=== PATIENT | male | born 1955 | race Caucasian/White ===

== ENCOUNTER 2020-08-23 12:24 | Outpatient (REF) | payer BC, SELFPAY | END 2020-08-23 12:25 | disposition home or self-care (01) | LOC: HO.LAB 12:24 | PROVIDERS: PCP Nurse Practitioner Family; Visit Provider Internal Medicine | DX: Z20.822 Contact with and (suspected) exposure to COVID-19 (principal) | CPT/HCPCS: 36415; C9803; U0003 ==

== ENCOUNTER 2020-10-23 07:27 | Outpatient (REF) | payer BC, SELFPAY ==
[2020-10-23 12:39] LABS: Alanine Aminotransferase 24 U/L (0-40); Albumin Level 4.3 g/dL (3.5-5.0); Alkaline Phosphatase 61 U/L (39-117); Anion Gap 18 (12-20); Aspartate Amino Transferase 35 U/L (5-37); Bilirubin Total 2.9 mg/dL (0.0-1.0); Blood Urea Nitrogen 11 mg/dL (9-16); Carbon Dioxide 25 mmol/L (22-29); Chloride 105 mmol/L (96-108); Cholesterol 131 mg/dL; Estimated Glomerular Filt Rate > 60; Glucose Fasting 98 mg/dL (60-99); HDL Cholesterol 33 mg/dL; LDL Cholesterol Calculated 81 mg/dl; Potassium 4.5 mmol/L (3.3-5.1); Sodium 143 mmol/L (135-145); Total Protein 7.4 g/dL (6.5-8.0); Triglycerides 86 mg/dL
[2020-10-23 12:44] LABS: Prostate Specific Antigen Scr 0.61 ng/mL (<0.05-4.0); Vitamin D 25-OH Total 10.9 ng/mL (>30)
== END 2020-10-23 07:28 | disposition home or self-care (01) ==
LOC: HO.HMGCLDS 07:27
PROVIDERS: PCP Nurse Practitioner Family; Visit Provider Nurse Practitioner Family
DX: Z00.00 Encounter for general adult medical examination without abnormal findings (principal); Z12.5 Encounter for screening for malignant neoplasm of prostate
CPT/HCPCS: 36415; 80053; 80061; 82306; 84153; 84443

== ENCOUNTER 2021-11-13 07:31 | Outpatient (REF) | payer MEDICARE, BC, SELFPAY ==
[2021-11-13 11:13] LABS: Appearance Urine CLOUDY; Color Urine YELLOW; Glucose Urine UA NEG (NEG); Leukocyte Esterase Urine NEG (NEG); Nitrite Urine NEG (NEG); PH 5.5 (5.0-8.0); Specific Gravity - Urine 1.025 (1.005-1.025); UACC Culture Trigger NO; Urine Blood 1+ (NEG); Urine Ketones NEG (NEG); Urine Protein NEG (NEG-TRACE)
[2021-11-13 11:28] LABS: Squamous Epithelial Cell Urine TRACE /LPF; WBC Urine 0 /HPF (0-4)
[2021-11-13 11:29] LABS: Amorphous Sediment Urine 4+ /LPF
[2021-11-13 12:01] LABS: Alanine Aminotransferase 28 U/L (0-40); Albumin Level 4.1 g/dL (3.5-5.0); Alkaline Phosphatase 65 U/L (39-117); Anion Gap 12 (12-20); Aspartate Amino Transferase 33 U/L (5-37); Bilirubin Total 2.3 mg/dL (0.0-1.0); Blood Urea Nitrogen 12 mg/dL (9-16); Calcium 9.1 mg/dL (8.4-10.2); Carbon Dioxide 29 mmol/L (22-29); Chloride 103 mmol/L (96-108); Cholesterol 112 mg/dL; Estimated Glomerular Filt Rate > 60; Glucose Fasting 118 mg/dL (60-99); HDL Cholesterol 29 mg/dL; LDL Cholesterol Calculated 70 mg/dl; Potassium 4.8 mmol/L (3.3-5.1); Sodium 139 mmol/L (135-145); Triglycerides 68 mg/dL
[2021-11-13 12:06] LABS: Prostate Specific Antigen Scr 0.55 ng/mL (<0.05-4.0)
== END 2021-11-13 07:32 | disposition home or self-care (01) ==
LOC: HO.HMGCLDS 07:31
PROVIDERS: Visit Provider Nurse Practitioner Family
DX: Z00.00 Encounter for general adult medical examination without abnormal findings (principal); Z13.220 Encounter for screening for lipoid disorders; Z12.5 Encounter for screening for malignant neoplasm of prostate; Z13.29 Encounter for screening for other suspected endocrine disorder
CPT/HCPCS: 36415; 80053; 80061; 81001; 84153; 84443

== ENCOUNTER 2022-01-06 10:42 | Outpatient (REF) | payer MEDICARE, BC, SELFPAY ==
[2022-01-06 13:49] LABS: Appearance Urine CLEAR; Color Urine YELLOW; Glucose Urine UA NEG (NEG); Leukocyte Esterase Urine NEG (NEG); Nitrite Urine NEG (NEG); Urine Blood TRACE (NEG); Urine Ketones NEG (NEG); Urine Protein NEG (NEG-TRACE)
[2022-01-06 14:03] LABS: WBC Urine 0 /HPF (0-4)
[2022-01-06 14:04] LABS: Urine Cytology See Pathology rpt
== END 2022-01-06 10:43 | disposition home or self-care (01) ==
LOC: HO.HMGCLDS 10:42
PROVIDERS: PCP Nurse Practitioner Family; Visit Provider Nurse Practitioner Family
DX: R31.29 Other microscopic hematuria (principal)
CPT/HCPCS: 81001; 87086; 88112

== ENCOUNTER 2022-11-25 07:34 | Outpatient (REF) | payer MEDICARE, BC, SELFPAY ==
[2022-11-25 11:28] LABS: MANUAL DIFF FLAG NO
[2022-11-25 11:31] LABS: Urine Cytology See Pathology rpt
[2022-11-25 11:41] LABS: Appearance Urine Turbid; Color Urine Dark Yellow; Glucose Urine UA Negative (Negative); Leukocyte Esterase Urine Negative (Negative); Nitrite Urine Negative (Negative); PH 5.5 (5.0-9.0); Specific Gravity - Urine 1.025 (1.005-1.025); UMIC TRIGGER UA YES; UMIC TRIGGER UACC YES; Urine Blood Trace (Negative); Urine Ketones Trace mg/dL (Negative); Urine Protein Trace mg/dL (Neg-Trace)
[2022-11-25 11:57] LABS: Bacteria Urine None Seen (None Seen); Calcium Oxalate Crystals Urine Present; Hyaline Casts Urine 0-2 /LPF (0-2); Squamous Epithelial Cell Urine 0-2 /HPF (0-2); WBC Urine 0-5 /HPF (0-5)
[2022-11-25 12:01] LABS: Basophils Absolute Auto 0.1 X10*3/uL (0.0-0.2); Basophils Percent Auto 0.8 % (0-2); Eosinophils Absolute Auto 0.1 X10*3/uL (0.0-0.4); Eosinophils Percent Auto 2.1 % (0-4); Hematocrit 48.8 % (42.0-52.0); Hemoglobin 15.9 g/dl (14.0-18.0); Imm Gran Abs Auto 0.02 X10*3/uL (0.00-0.03); Imm Gran Pct Auto 0.3 % (0.0-0.4); Lymphocytes Absolute Auto 1.3 X10*3/uL (1.2-4.9); Lymphocytes Percent Auto 21.5 % (20-40); Mean Corpuscular HGB Conc 32.6 g/dl (31.0-36.0); Mean Corpuscular Hemoglobin 31.1 pg (27.0-33.0); Mean Corpuscular Volume 95.5 fL (80.0-98.0); Monocytes Absolute Auto 0.6 X10*3/uL (0.1-1.2); Monocytes Percent Auto 9.7 % (2-11); Neutrophils Percent Auto 65.6 % (45-73); Platelet Count 164 X10*3/uL (160-400); Red Blood Count 5.11 X10*6/uL (4.60-5.80); Red Cell Distribution Width 13.4 % (11.0-16.0); White Blood Count 6.1 X10*3/uL (4.8-10.8)
[2022-11-25 13:30] LABS: Alanine Aminotransferase 28 U/L (0-40); Albumin Level 4.2 g/dL (3.5-5.0); Alkaline Phosphatase 56 U/L (39-117); Anion Gap 13 (12-20); Aspartate Amino Transferase 35 U/L (5-37); Bilirubin Total 2.6 mg/dL (0.0-1.0); Blood Urea Nitrogen 12 mg/dL (9-16); Calcium 9.2 mg/dL (8.4-10.2); Carbon Dioxide 30 mmol/L (22-29); Chloride 104 mmol/L (96-108); Cholesterol 121 mg/dL; Estimated Glomerular Filt Rate > 60; Glucose Fasting 119 mg/dL (60-99); HDL Cholesterol 35 mg/dL; LDL Cholesterol Calculated 74 mg/dl; Potassium 4.7 mmol/L (3.3-5.1); Sodium 142 mmol/L (135-145); Total Protein 6.9 g/dL (6.5-8.0); Triglycerides 62 mg/dL
[2022-11-25 13:54] LABS: Prostate Specific Antigen Scr 0.63 ng/mL (<0.05-4.0); TSH reflex Free T4 2.19 uIU/mL (0.32-4.0)
== END 2022-11-25 07:35 | disposition home or self-care (01) ==
LOC: HO.HMGCLDS 07:34
PROVIDERS: PCP Nurse Practitioner Family; Visit Provider Nurse Practitioner Family
DX: Z00.00 Encounter for general adult medical examination without abnormal findings (principal); Z12.5 Encounter for screening for malignant neoplasm of prostate; R31.29 Other microscopic hematuria; I10 Essential (primary) hypertension; E78.5 Hyperlipidemia, unspecified
CPT/HCPCS: 36415; 80053; 80061; 81001; 84153; 84443; 85025; 88112

== ENCOUNTER 2023-07-02 10:46 | Outpatient (AMB) | payer MEDICARE, BC, SELFPAY ==
--- NOTE | 2023-07-02 10:55 | A.OFFPC_ITS ---
Vital Signs 07/02/23 10:59 Height 6 ft 2 in Weight 329 lb BMI 42.2 BP 122/78 Blood Pressure Location Rt brachial Position Sitting Pulse 68 Pulse Source Pulse Oximeter Pulse Oximetry (%) 98 Oxygen Delivery Method Room Air Intake Visit Reasons: PE Intake Note: Patient here for physical exam. no new concerns or issues. Allergies morphine Allergy (Unknown, Verified 07/02/23 11:00) anaphylaxis Medication List - Last Reconciled 07/02/23 by FLORENCE Markham clobetasol 0.05% 1 appl topical BID 30 days flu vac [id number] 36mos up(PF) mL IM losartan 50 mg PO DAILY Tobacco use date assessed: 12/23/22 Fall risk assessment: No Falls in past year Last assessed Fall Risk: 07/02/23 Dental Screening Dental Screen Date: 07/02/23 Did you have a dental visit in the last 12 months?: Yes Did you have a dental problem in the last 6 months where you did not have access to dental care?: No Was dental information given to patient?: Patient has dentist HPI PE HPI Details Pt is here for a PE. Will order labs. PSA is up to date. Denies dribbing with urination, weak stream, and frequent nocturia. Refuses all colon screens. Pt has a hx of micro hem. He has seen urology for this in the past and had a cystoscopy and cytology. Pt has a faint murmur and a click, will order echo. [facility] Medical History Diastolic dysfunction [place] disease HTN (hypertension) Physical exam Ruptured appendix Family History Father No problems noted. Mother No problems noted. Brother No problems noted. Social History Housing: House Alcohol intake: never Patient Tobacco Use Status: Never used Tobacco e-Cigarette/Vaping Use: Never Used Second Hand Smoke Exposure: No service: No Current occupational status: retired Cognitive needs: No Hearing needs: No Vision needs: No Questionnaire PHQ-9 Over the last 2 weeks, how often have you been bothered by any of the following problems? 1. Little interest or pleasure in doing things: not at all 2. Feeling down, depressed, or hopeless: not at all 3. Trouble falling or staying asleep, or sleeping too much: not at all 4. Feeling tired or having little energy: not at all 5. Poor appetite or overeating: not at all 6. Feeling bad about yourself - or that you are a failure or have let yourself or your family down: not at all 7. Trouble concentrating on things, such as reading the newspaper or watching television: not at all 8. Moving or speaking so slowly that other people could have noticed. Or the opposite - being so fidgety or restless that you have been moving around a lot more than usual: not at all 9. Thoughts that you would be better off or of hurting yourself in some way: not at all Total score: 0 Depression Screening Interpretation: Negative Depression Screening Done: Yes 84351 - PHQ-9 Billing: Yes Source: Developed by Drs. Paolo Holly, Patricia Alexandra, Sagar Abreu and colleagues, with an educational dwayne from [employer]. Thrive Questionnaire Date Thrive assessed: 07/02/23 I am a: Patient What is your living situation today?: I have a steady place to live Within the past 12 months, did the food you bought not last and you didn't have the money to get more?: Never true Within the past 12 months, did you worry whether your food would run out before you got money to buy more?: Never true Do you have trouble paying for medicines?: No Do you have trouble getting transportation to medical appointments?: No Do you have trouble paying your heating and electricity bill?: No Do you have trouble taking care of your child, family member or friend?: No Do you have trouble with day-to-day activities such as bathing, preparing meals, shopping, managing finances, etc.?: No Are you currently unemployed and looking for a job?: No Are you interested in more education?: No AUDIT C Alcohol Use Questionnaire (AUDIT-C) 1. How often do you have a drink containing alcohol?: Never 3. How often do you have six or more drinks on one occasion?: Never Total Score: 0 Score Reviewed/Action Taken: No DANO-7 AMB Questionnaire DANO-7 Date DANO - 7 assessed: 07/02/23 Feeling nervous, anxious, or on edge: 0 = Not at all Not being able to stop or control worryin = Not at all Worrying too much about different things: 0 = Not at all Trouble relaxin = Not at all Being so restless that it is hard to sit still: 0 = Not at all Becoming easily annoyed or irritable: 0 = Not at all Feeling afraid as if something awful might happen: 0 = Not at all Total DANO-7 score (0-4 normal; 5-9 mild; 10-14 moderate; 15-21 severe): 0 Source: Developed by Drs. Paolo Holly, Patricia Alexandra, Sagar Abreu and colleagues, with an educational dwayne from [employer]. DANO-7 Assessment Billing DANO-7 Assessment Tool: DANO-7 Assessment [id number] Review of Systems Const Denies chills and Denies fever(s) Eyes Denies blurry vision ENT Denies vertigo, Denies dizziness and Denies sore throat Card Denies chest pain at rest, Denies chest pain with activity, Denies diaphoresis, Denies dyspnea and Denies dyspnea on exertion Resp Denies cough, Denies dyspnea, Denies dyspnea on exertion and Denies wheezing GI Denies abdominal pain, Denies melena, Denies hematochezia, Denies constipation, Denies diarrhea and Denies loose stools Denies hematuria Musc Denies numbness and Denies tingling Skin/Breast Denies lesions Neuro Denies vertigo, Denies dizziness, Denies numbness and Denies tingling Psych Denies anxiety, Denies depression, Denies homicidal ideation, Denies suicidal ideation and Denies other (substance abuse) Aller/Immun Denies wheezing Physical exam (Primary Care) Vital Signs: Last Vital Signs Pulse 68 07/02/23 10:59 BP 122/78 07/02/23 10:59 Pulse Ox 98 07/02/23 10:59 Oxygen Delivery Method Room Air 07/02/23 10:59 BMI result Body Mass Index 42.2 Tobacco/Smoking Status: Tobacco use Status Tobacco use date assessed 12/23/22 07/02/23 10:58 Patient Tobacco Use Status Never used Tobacco 07/02/23 10:58 e-Cigarette/Vaping Use Never Used 07/02/23 10:58 Depression Screening Interpretation: Negative Thrive Assessment: Date of Thrive Assessment Date Thrive assessed 12/23/22 07/02/23 10:58 Const General: cooperative Nutritional Appearance: obese morbidly obese Orientation/consciousness: patient oriented x3 HENMT Head: Yes normal to inspection, Yes normocephalic and Yes atraumatic Ears: TM's normal bilaterally Eyes General: appearance normal, both eyes and all related structures Alignment and Position: alignment normal and position normal Neck Neck: Yes normal visual inspection and Yes no lymphadenopathy Thyroid: Thyroid normal Resp Effort & Inspection: normal respiratory effort Auscultation: clear to auscultation bilaterally Cardio Rate: regular rate Rhythm: regular rhythm Heart sounds: S1 normal heart sound present, S2 normal heart sound present, Clicking heart sound present and Murmur heart sound present systolic (faint) GI Other: diastasis rectus Palpation (GI): Soft to palpation and nontender Auscultation: normal bowel sounds Male General Exam: Yes normal external exam Penis: normal penis Scrotum: scrotum normal, testes descended bilaterally and no inguinal hernias Testes: no testicular mass Skin Rashes: no rashes Neuro General: patient oriented x3, moves all extremities, no focal motor deficits and deep tendon reflexes 2+ bilaterally Romberg Test: Negative Psych Appearance: grossly normal Mental Status: mental status grossly normal Speech and movement: Normal speech and movement present Affect: normal affect Attitude: cooperative Thought process: Normal thought process present Thought content: Normal thought content present Insight: Good insight present (Psych) Judgement: Good judgement present (Psych) Assessment and Plan Assessment & Plan (1) Physical exam: Code(s): Z00.00 - Encounter for general adult medical examination without abnormal findings Plan: Labs ordered (2) Screening PSA (prostate specific antigen): Code(s): Z12.5 - Encounter for screening for malignant neoplasm of prostate (3) Systolic murmur: Code(s): R01.1 - Cardiac murmur, unspecified Plan: Echo ordered (4) Systolic click: Code(s): R01.1 - Cardiac murmur, unspecified Plan: Echo ordered Plan The patient agreed to the use of a medical charge entry specialist for this encounter. Scribed for FLORENCE Wong by Jerrica Dahl medical charge entry specialist, on 07/02/2023 at 11:20 EST. Orders: Orders Lipid Panel Today Z00.00 - Encounter for general adult medical examination without abnormal findings UA CC w/rflx Micro + Cult Today Z00.00 - Encounter for general adult medical examination without abnormal findings Complete Blood Count Auto Diff Today Z00.00 - Encounter for general adult medical examination without abnormal findings Comprehensive Rentz. Panel Fast Today Z00.00 - Encounter for general adult medical examination without abnormal findings TSH reflex Free T4 Today Z00.00 - Encounter for general adult medical examination without abnormal findings CA echo transthoracic complete Today R01.1 - Cardiac murmur, unspecified Coding Level of Care Code Est Pt Prev Care >65y(38541) Diagnoses Physical exam Z00.00 Screening PSA (prostate specific antigen) Z12.5 Systolic murmur R01.1 Systolic click R01.1 Additional Codes DANO-7 Assessment Billing - DANO-7 Assessment Tool: DANO-7 Assessment [id number] ([id number])
[2023-07-02 10:59] VITALS: BP 122/78; PULSE 68; O2SAT 98; BMI 42.2
== END 2023-07-02 11:43 | disposition home or self-care (01) ==
PROVIDERS: Visit Provider Nurse Practitioner Family
DX: Z00.00 Encounter for general adult medical examination without abnormal findings (principal); R01.1 Cardiac murmur, unspecified
CPT/HCPCS: 99397

== ENCOUNTER → 2023-08-19 12:35 | Outpatient (REF) | payer MEDICARE, BC, SELFPAY ==
--- NOTE | 2023-08-19 12:38 | CA_ITS ---
Transthoracic Echocardiogram Patient (Last, First, Middle): Compa Weston, Gender: Male Date of : 1955 Age: 68 Procedure Date: 08/19/2023 Procedure Type: Transthoracic Echocardiogram Location: OP Height: 187.96 cm Weight: 145.15 kg BSA: 2.65 m2 Heart Rate: 77 bpm BP: 120 / 80 mmHg Concrete Finisher Apprentice: SB Referring MD: Sabino Muñiz [facility] Symptoms: R01.1 - Cardiac murmur, unspecified Study Quality: Fair ECG Rhythm: Sinus Conclusions: - The left ventricular systolic function is normal. The visually estimated ejection fraction is between 60-65%. - Possible mild pulmonic valve stenosis. Findings Procedure Information The quality of the study was technically difficult. The study quality is limited by patients body habitus. The patient declines contrast. Left Ventricle Normal left ventricular cavity size. There is mildly increased left ventricular wall thickness. The left ventricular systolic function is normal. The visually estimated ejection fraction is between 60-65%. There is no evidence of regional wall motion abnormalities. Diastolic function is normal for age. Right Ventricle Normal right ventricular cavity size and systolic function. Atria Both atria are normal in size. Aortic Valve There is a normal trileaflet aortic valve. There is no aortic valve stenosis. There is no aortic valve regurgitation. Mitral Valve The mitral valve appears normal. There is no mitral valve regurgitation. There is no mitral valve stenosis. Pulmonic Valve Peak PV gradient is calculated at 18 mmHg. Possible mild pulmonic valve stenosis. Tricuspid Valve There is no tricuspid valve regurgitation. Tricuspid regurgitation envelope is inadequate for calculation of right ventricular systolic pressure. Great Vessels The asc aorta is normal in size. Venous The inferior vena cava is normal in size and collapses greater than 50% with inspiration. Pericardium/Pleural There is no evidence of pericardial effusion. Prior Study Comparison Changes noted compared to prior study dated: 05/06/2017. see comment on pulmonic valve. Measurements 2D Linear Measurements IVSd: 1.14 0.6-0.9/0.6-1.0 cm LVIDd: 5.53 3.9-5.3/4.2-5.9 cm LVIDd Index: 2.09 2.4-3.2/2.2-3.1 cm/m2 LVIDs: 3.50 2.0-3.6 cm LVPWd: 1.14 0.7-1.1 cm LA Diam: 4.10 2.7-3.8/3.0-4.0 cm LAIDs Index: 1.55 1.5-2.3 cm/m2 LV Mass: 319.56 67-162/88-224 g LV Mass Index: 120.59 43-95/49-115 g/m2 LVOT Diam: 2.40 3.0+(-)1.3 cm Mitral Valve MV Pk E: 0.87 MV PK A: 0.86 MV Decel Time: 203.00 E/A: 1.00 E'Lateral: 10.40 E'Medial: 6.84 E/E' Med: 12.70 E/E' Lat: 8.30 PHT: 59.00 MVA PHT: 3.73 Decel Glades: 4.28 Aortic Valve AoV Pk Linwood: 1.23 AoV Pk Grad: 6.00 MARLEE: 3.89 LVOT LVOT Pk Linwood: 1.09 LVOT Mn Linwood: 0.74 LVOT VTI: 0.20 LVOT Pk Grad: 5.00 LVOT Mn Grad: 3.00 LVOT Diam: 2.40 LVOT Area: 4.52 Diastolic Function MV Pk E: 0.87 MV Pk A: 0.86 E/A: 1.00 E'Medial: 6.84 E/E' Med: 12.70 E' Laterial: 10.40 E/E' Lat: 8.30 Right Ventricle TVS' Linwood: 11.70 Tricuspid Valve RA Press: 3.00 Great Vessels Aorta Sinus of Valsalva: 3.30 2.0-3.5 cm Ao Asc: 3.50 2.1-3.4 cm Pulmonary Valve PV Pk Linwood: 2.12 PV Min Linwood: 1.53 Peak PV Grad: 18.00 PV Mn Grad: 11.00 Updated in Other Vendor System with Status of Final Hayder Snowden MD electronically signed on 08/20/2023 12:23:33 PM with status of Final
== END ==
LOC: HO.CARD 12:35
PROVIDERS: PCP Nurse Practitioner Family; Visit Provider Nurse Practitioner Family
DX: R01.1 Cardiac murmur, unspecified (principal)
CPT/HCPCS: 93306

== ENCOUNTER → 2023-08-19 12:38 | Outpatient (BNV) | payer MEDICARE, BC, SELFPAY | PROVIDERS: PCP Nurse Practitioner Family; Visit Provider Internal Medicine | DX: R01.1 Cardiac murmur, unspecified (principal) | CPT/HCPCS: 93306 ==

== ENCOUNTER 2023-12-16 07:10 | Outpatient (REF) | payer MEDICARE, BC, SELFPAY ==
[2023-12-16 10:22] LABS: MANUAL DIFF FLAG NO
[2023-12-16 10:28] LABS: Basophils Absolute Auto 0.1 X10*3/uL (0.0-0.2); Basophils Percent Auto 1.1 % (0-2); Eosinophils Absolute Auto 0.2 X10*3/uL (0.0-0.4); Hematocrit 49.9 % (42.0-52.0); Hemoglobin 16.5 g/dl (14.0-18.0); Imm Gran Abs Auto 0.02 X10*3/uL (0.00-0.03); Imm Gran Pct Auto 0.4 % (0.0-0.4); Lymphocytes Absolute Auto 1.4 X10*3/uL (1.2-4.9); Lymphocytes Percent Auto 25.3 % (20-40); Mean Corpuscular HGB Conc 33.1 g/dl (31.0-36.0); Mean Corpuscular Hemoglobin 30.3 pg (27.0-33.0); Mean Corpuscular Volume 91.7 fL (80.0-98.0); Mean Platelet Volume 10.8 fL (9.4-12.4); Monocytes Absolute Auto 0.6 X10*3/uL (0.1-1.2); Monocytes Percent Auto 10.1 % (2-11); Neutrophils Absolute Auto 3.3 x10*3/uL (2.0-8.3); Neutrophils Percent Auto 60.1 % (45-73); Platelet Count 172 X10*3/uL (160-400); Red Blood Count 5.44 X10*6/uL (4.60-5.80); Red Cell Distribution Width 13.6 % (11.0-16.0); White Blood Count 5.4 X10*3/uL (4.8-10.8)
[2023-12-16 10:29] LABS: Appearance Urine Clear; Color Urine Dark Yellow; Glucose Urine UA Negative (Negative); Leukocyte Esterase Urine Negative (Negative); Nitrite Urine Negative (Negative); PH 6.5 (5.0-9.0); Specific Gravity - Urine 1.025 (1.005-1.025); Urine Blood Negative (Negative); Urine Ketones Trace mg/dL (Negative); Urine Protein Trace mg/dL (Neg-Trace)
[2023-12-16 11:07] LABS: Alanine Aminotransferase 20 U/L (0-40); Albumin Level 4.1 g/dL (3.5-5.0); Alkaline Phosphatase 59 U/L (39-117); Anion Gap 14 (12-20); Aspartate Amino Transferase 31 U/L (5-37); Bilirubin Total 2.2 mg/dL (0.0-1.0); Blood Urea Nitrogen 14 mg/dL (9-16); Calcium 9.4 mg/dL (8.4-10.2); Carbon Dioxide 25 mmol/L (22-29); Chloride 103 mmol/L (96-108); Cholesterol 124 mg/dL (<200); Estimated Glomerular Filt Rate > 60; Glucose Fasting 109 mg/dL (60-99); HDL Cholesterol 32 mg/dL (>40); LDL Cholesterol Calculated 80 mg/dL (<100); Potassium 4.4 mmol/L (3.3-5.1); Sodium 138 mmol/L (135-145); Total Protein 7.5 g/dL (6.5-8.0); Triglycerides 64 mg/dL (<150)
[2023-12-16 11:13] LABS: TSH reflex Free T4 2.08 uIU/mL (0.32-4.0)
== END 2023-12-16 07:11 | disposition home or self-care (01) ==
LOC: HO.HMGCLDS 07:10
PROVIDERS: PCP Nurse Practitioner Family; Visit Provider Nurse Practitioner Family
DX: Z00.00 Encounter for general adult medical examination without abnormal findings (principal)
CPT/HCPCS: 36415; 80053; 80061; 81003; 84443; 85025

== ENCOUNTER 2023-12-31 08:25 | Outpatient (AMB) | payer MEDICARE, BC, SELFPAY ==
--- NOTE | 2023-12-31 08:35 | MHC.PC.OV ---
Vital Signs 12/31/23 08:37 Height 6 ft 2 in Weight 324 lb BMI 41.6 BP 140/90 H Blood Pressure Location Lt brachial Position Sitting Pulse 68 Pulse Source Pulse Oximeter Pulse Oximetry (%) 98 Oxygen Delivery Method Room Air Intake Visit Reasons: 6 Month follow up Intake Note: Patient here for HTN f/u Allergies morphine Allergy (Unknown, Verified 12/31/23 08:38) anaphylaxis Tobacco use date assessed: 12/31/23 Fall risk assessment: No Falls in past year Last assessed Fall Risk: 12/31/23 Dental Screening Dental Screen Date: 12/31/23 Did you have a dental visit in the last 12 months?: Yes Did you have a dental problem in the last 6 months where you did not have access to dental care?: No Was dental information given to patient?: Patient has dentist HPI 6 Month follow up HPI Details HTN: Blood pressure is managed with losartan 50mg. Pt reports that his blood pressure at home is in the 130s/70s. Denies chest pain, shortness of breath, headache, dizziness, and blurredvision. Pt has been losing weight. He is active at home, lifting light weights. [facility] Medical History Ruptured appendix [place] disease Physical exam Diastolic dysfunction HTN (hypertension) Family History Father No problems noted. Mother No problems noted. Brother No problems noted. Social History Housing: House Alcohol intake: never Patient Tobacco Use Status: Never used Tobacco e-Cigarette/Vaping Use: Never Used Second Hand Smoke Exposure: No service: No Current occupational status: retired Cognitive needs: No Hearing needs: No Vision needs: No Questionnaire PHQ-9 Over the last 2 weeks, how often have you been bothered by any of the following problems? 99460 - PHQ-9 Billing: Patient declined-do not bill Source: Developed by Drs. Paolo Holly, Patricia Alexandra, Sagar Abreu and colleagues, with an educational dwayne from [employer]. Thrive Questionnaire Date Thrive assessed: 07/02/23 Currently or been in a relationship where the following occur: no concerns reported THRIVE Score: 0 AUDIT C Alcohol Use Questionnaire (AUDIT-C) 1. How often do you have a drink containing alcohol?: Never 3. How often do you have six or more drinks on one occasion?: Never Total Score: 0 Score Reviewed/Action Taken: No DANO-7 AMB Questionnaire DANO-7 Date DANO - 7 assessed: 07/02/23 Source: Developed by Drs. Paolo Holly, Patricia Alexandra, Sagar Abreu and colleagues, with an educational dwayne from [employer]. DANO-7 Assessment Billing DANO-7 Assessment Tool: pt declined-do not bill Review of Systems Const Reports as per HPI Physical exam (Primary Care) Vital Signs: Last Vital Signs Pulse 68 12/31/23 08:37 BP 140/90 H 12/31/23 08:37 Pulse Ox 98 12/31/23 08:37 Oxygen Delivery Method Room Air 12/31/23 08:37 BMI result Body Mass Index 41.6 Tobacco/Smoking Status: Tobacco use Status Tobacco use date assessed 12/31/23 12/31/23 08:39 Patient Tobacco Use Status Never used Tobacco 12/31/23 08:35 e-Cigarette/Vaping Use Never Used 12/31/23 08:35 Thrive Assessment: Date of Thrive Assessment Date Thrive assessed 07/02/23 12/31/23 08:35 Currently or been in a relationship where the following occur: no concerns reported Const General: cooperative Nutritional Appearance: obese morbidly obese Orientation/consciousness: patient oriented x3 Resp Effort & Inspection: normal respiratory effort Auscultation: clear to auscultation bilaterally Cardio Rate: regular rate Rhythm: regular rhythm Heart sounds: S1 normal heart sound present and S2 normal heart sound present GI Other: diastasis rectus noted Neuro General: patient oriented x3 Psych Appearance: grossly normal Mental Status: mental status grossly normal Speech and movement: Normal speech and movement present Affect: normal affect Attitude: cooperative Thought process: Normal thought process present Thought content: Normal thought content present Insight: Good insight present (Psych) Judgement: Good judgement present (Psych) Assessment and Plan Assessment & Plan (1) HTN (hypertension): Code(s): I10 - Essential (primary) hypertension Plan: Continue to monitor BP at home Plan The patient agreed to the use of a medical sales specialist for this encounter. Scribed for FLORENCE Wong by Jerrica Dahl medical sales specialist, on 12/31/2023 at 08:45 EST. Coding Level of Care Code Est Pt Level 3 (17862) Diagnoses HTN (hypertension) I10
[2023-12-31 08:37] VITALS: BP 140/90; PULSE 68; O2SAT 98; BMI 41.6
== END 2023-12-31 10:41 | disposition home or self-care (01) ==
PROVIDERS: PCP Nurse Practitioner Family; Visit Provider Nurse Practitioner Family
DX: I10 Essential (primary) hypertension (principal)
CPT/HCPCS: 99213

== ENCOUNTER 2024-07-05 08:49 | Outpatient (AMB) | payer MEDICARE, BC, SELFPAY ==
[2024-07-05 08:51] VITALS: BP 130/80; PULSE 78; O2SAT 97; BMI 41.0
--- NOTE | 2024-07-05 08:51 | A.OFFPC_ITS ---
Vital Signs 07/05/24 08:51 Height 6 ft 2 in Weight 319 lb BMI 41.0 BP 130/80 Blood Pressure Location Rt brachial Position Sitting Pulse 78 Pulse Source Pulse Oximeter Pulse Oximetry (%) 97 Oxygen Delivery Method Room Air Intake Visit Reasons: Annual PE Intake Note: pt is here for annual exam Chips Screen Tender Required: No Accompanied by: Self / Same As Patient Allergies morphine Allergy (Unknown, Verified 07/05/24 09:11) anaphylaxis Medication List - Last Reconciled 07/05/24 by MACARIO MarkhamP- clobetasol 0.05% 1 appl topical BID losartan 50 mg PO DAILY Tobacco use date assessed: 12/31/23 Fall risk assessment: No Falls in past year Last assessed Fall Risk: 07/05/24 Dental Screening Dental Screen Date: 12/31/23 HPI Annual PE HPI Details History of Present Illness The patient is a 69-year-old male presenting with sinus congestion. He reports ongoing sinus issues likely exacerbated by the cold weather, which has resulted in a runny nose. Additionally, the patient has previously received vaccinations, including the pneumonia vaccine and the influenza vaccine. However, he expresses concerns about vaccines such as those for COVID and RSV, particularly upon his daughter's insistence and the influence it has had on family interactions, such as not seeing his grandkids. 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 - Reports maintaining a stable weight ar ound 320 pounds but expresses difficulty in losing additional weight. - Has a familial resistance regarding va ccines leading to limited interaction with grandchildren. - Physical activity involves household m aintenance tasks, such as moving furniture and repairing porches. Review of Systems - Ear/Nose/Throat: Reports sinus congest ion and a runny nose, especially in cold weather. denies any SOB, CP, constipation, diarrhea, N/V, fevers, chills, abd pains, and urinary symptoms. Physical Exam General: Cooperative, healthy appearing, comfortable, no acute distress and well developed, obese Orientation: Patient oriented x3 Limitations: No limitations Head: Normal to inspection Ears: Hearing grossly normal bilaterally Nose: Nose is running sore in the cold weather Face and sinus: Sinus issues present Eyes: Appearance normal, both eyes and all related structures Neck: Normal visual inspection and Yes full ROM Respiratory: Normal respiratory effort and able to speak in complete sentences. Clear to auscultation bilaterally Cardiovascular: Regular rate and rhythm. Normal S1 and S2 GI: Normal to inspection. Soft to palpation and nontender. Diastasis rectus noted Skin: No rashes or lesions noted Neuro: Patient oriented x3 Extremities: Trace edema to bilateral lower extremities. Normal to inspection Results Plan - For sinus congestion: Consideration of sinus management with possible environmental control strategies, such as avoiding cold exposure and using allergy medications as needed. - For vaccine status: Further discussion on the need for the Prevnar 20 pneumonia vaccine, especially given previous administration of other pneumonia vaccines. Reinforcement of the benefits of continuing with the annual influenza vaccine in view of past influenza exposure and the possibility of less severe reactions with [id number] options. Patient was informed and verbally consented to the use of an ambient scribe for clinic note documentation during this visit. Discussion Notes During this consultation, I addressed the patient's hesitancy regarding certain vaccinations. Given his previous adverse reaction to the high-dose influenza vaccine, we discussed potential alternatives, such as opting for a standard-dose vaccine next time. I explained the importance of the Prevnar 20 pneumonia vaccine, considering its role in preventing pneumococcal disease, and reassured the patient about minimal side effects. Additionally, the decision for sinus congestion management involved addressing potential allergens and environmental factors. Follow-up was considered for six months, along with reminders for fasting before upcoming lab work. Pt refused cologuard/colonoscopy and SREEKANTH Patient Instructions - Schedule lab work ensuring fasting bef orehand as per routine check-up protocols. - Consider receiving the Prevnar 20 pneu monia vaccination today, barring any contraindications or lingering hesitancies. - Maintain sinus congestion management t hrough environmental controls and carc-qqo-ovqkiow remedies as necessary. - Continue to monitor any adverse effect s post-vaccination and report any severe reactions immediately. 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 Mother No problems noted. Brother No problems noted. Social History (Reviewed 07/05/24 @ 08:52 by HUMA Womack Housing: House Alcohol intake: never Patient Tobacco Use Status: Never used Tobacco e-Cigarette/Vaping Use: Never Used Second Hand Smoke Exposure: No service: No Current occupational status: retired Cognitive needs: No Hearing needs: No Vision needs: No Questionnaire PHQ-9 Over the last 2 weeks, how often have you been bothered by any of the following problems? 44541 - PHQ-9 Billing: Patient declined-do not bill Source: Developed by Patricia Suazo Kurt Kroenke and colleagues, with an educational dwayne from [email or web address]. Thrive Questionnaire Date Thrive assessed: 07/02/23 DANO-7 AMB Questionnaire DANO-7 Date DANO - 7 assessed: 07/05/24 Feeling nervous, anxious, or on edge: 0 = Not at all Not being able to stop or control worryin = Not at all Worrying too much about different things: 0 = Not at all Trouble relaxin = Not at all Being so restless that it is hard to sit still: 0 = Not at all Becoming easily annoyed or irritable: 0 = Not at all Feeling afraid as if something awful might happen: 0 = Not at all Total DANO-7 score (0-4 normal; 5-9 mild; 10-14 moderate; 15-21 severe): 0 Source: Developed by Drs. Paolo Holly, Patricia Alexandra, Sagar Abreu and colleagues, with an educational dwayne from [email or web address]. DANO-7 Assessment Billing DANO-7 Assessment Tool: DANO-7 Assessment 17412 Physical exam (Primary Care) Vital Signs: Last Vital Signs Pulse 78 07/05/24 08:51 BP 130/80 07/05/24 08:51 Pulse Ox 97 07/05/24 08:51 Oxygen Delivery Method Room Air 07/05/24 08:51 BMI result Body Mass Index 41.0 Tobacco/Smoking Status: Tobacco use Status Tobacco use date assessed 12/31/23 07/05/24 08:59 Patient Tobacco Use Status Never used Tobacco 07/05/24 08:59 e-Cigarette/Vaping Use Never Used 07/05/24 08:59 Thrive Assessment: Date of Thrive Assessment Date Thrive assessed 07/02/23 07/05/24 08:59 Immunizations pneumoc 20-chaz conj-dip cr(PF) 0.5 mL IM syringe Performing Provider: FLORENCE Markham Performing Location: [facility] Administered by: Brandon Christianson CMA on 07/05/24 09:18 Dose Route Admin Location Dispensed Lot Number Expiration Date NDC [employer] 0.5 mL IM Left Deltoid 0.5 mL [id number] 11/20/25 [employer] VIS Given Date VIS Provided VIS Publication Date 07/05/24 Single Vaccine 21 Eligibility Eligibility Date Funding Source Not [facility] Eligible 07/05/24 Private Coding Level of Care Code Est Pt Prev Care >65y(45379) Diagnoses Physical exam Z00. Screening PSA (prostate specific antigen) Z12.5 Vitamin D deficiency E55.9 Additional Codes DANO-7 Assessment Billing - DANO-7 Assessment Tool: DANO-7 Assessment 47087 ([id number]) Assessment & Plan Assessment & Plan (1) Physical exam: Code(s): Z00.00 - Encounter for general adult medical examination without abnormal findings Category: Medical (2) Screening PSA (prostate specific antigen): Code(s): Z12.5 - Encounter for screening for malignant neoplasm of prostate Category: Medical (3) Vitamin D deficiency: Code(s): E55.9 - Vitamin D deficiency, unspecified Category: Medical Plan . Orders: Orders Comprehensive [place]. Panel Fast Today Z00.00 - Encounter for general adult medical examination without abnormal findings TSH reflex Free T4 Today Z00.00 - Encounter for general adult medical examination without abnormal findings UA CC w/rflx Micro + Cult Today Z00.00 - Encounter for general adult medical examination without abnormal findings Lipid Panel Today Z00.00 - Encounter for general adult medical examination without abnormal findings Vitamin D 25-OH Total Today E55.9 - Vitamin D deficiency, unspecified Complete Blood Count Auto Diff Today Z00.00 - Encounter for general adult medical examination without abnormal findings Prostate Specific Antigen Scr Today Z12.5 - Encounter for screening for malignant neoplasm of prostate Pneumococcal 20 Immunization Today Z23 - Encounter for immunization Medications: New clobetasol 0.05% 1 appl topical BID 100 grams 3RF pneumoc 20-chaz conj-dip cr(PF) 0.5 mL IM ONCE 0.5 mL 0RF Z23 - Encounter for immunization
== END 2024-07-05 09:28 | disposition home or self-care (01) ==
PROVIDERS: PCP Nurse Practitioner Family; Visit Provider Nurse Practitioner Family
DX: Z00.00 Encounter for general adult medical examination without abnormal findings (principal); Z12.5 Encounter for screening for malignant neoplasm of prostate; E55.9 Vitamin D deficiency, unspecified; Z23 Encounter for immunization

== ENCOUNTER → 2024-07-05 08:49 | Outpatient (BNVA) | payer MEDICARE, BC, SELFPAY | PROVIDERS: PCP Nurse Practitioner Family; Visit Provider Nurse Practitioner Family | DX: Z00.00 Encounter for general adult medical examination without abnormal findings (principal); Z23 Encounter for immunization; E55.9 Vitamin D deficiency, unspecified; I10 Essential (primary) hypertension | CPT/HCPCS: 90471; 90677; 96127; 99397 ==

== ENCOUNTER 2024-12-13 07:12 | Outpatient (REF) | payer MEDICARE, BC, SELFPAY ==
[2024-12-13 10:14] LABS: MANUAL DIFF FLAG NO
[2024-12-13 10:23] LABS: Appearance Urine Clear; Basophils Absolute Auto 0.1 X10*3/uL (0.0-0.2); Color Urine Yellow; Eosinophils Absolute Auto 0.2 X10*3/uL (0.0-0.4); Eosinophils Percent Auto 4.7 % (0-4); Glucose Urine UA Negative (Negative); Hematocrit 50.1 % (42.0-52.0); Hemoglobin 16.2 g/dl (14.0-18.0); Imm Gran Abs Auto 0.02 X10*3/uL (0.00-0.03); Imm Gran Pct Auto 0.4 % (0.0-0.4); Leukocyte Esterase Urine Negative (Negative); Lymphocytes Absolute Auto 1.5 X10*3/uL (1.2-4.9); Lymphocytes Percent Auto 29.6 % (20-40); Mean Corpuscular HGB Conc 32.3 g/dl (31.0-36.0); Mean Corpuscular Hemoglobin 30.3 pg (27.0-33.0); Mean Corpuscular Volume 93.6 fL (80.0-98.0); Mean Platelet Volume 11.1 fL (9.4-12.4); Monocytes Absolute Auto 0.5 X10*3/uL (0.1-1.2); Monocytes Percent Auto 10.1 % (2-11); Neutrophils Absolute Auto 2.7 x10*3/uL (2.0-8.3); Neutrophils Percent Auto 54.2 % (45-73); Nitrite Urine Negative (Negative); PH 6.5 (5.0-9.0); Platelet Count 154 X10*3/uL (160-400); Red Blood Count 5.35 X10*6/uL (4.60-5.80); Red Cell Distribution Width 13.6 % (11.0-16.0); Specific Gravity - Urine 1.015 (1.005-1.025); UMIC TRIGGER UACC YES; Urine Blood Trace (Negative); Urine Ketones Negative (Negative); Urine Protein Negative (Neg-Trace); White Blood Count 5.1 X10*3/uL (4.8-10.8)
[2024-12-13 10:26] LABS: Bacteria Urine None Seen (None Seen); Hyaline Casts Urine 0-2 /LPF (0-2); RBC Urine 0-2 /HPF (0-2); Squamous Epithelial Cell Urine 0-2 /HPF (0-2); WBC Urine 0-5 /HPF (0-5)
[2024-12-13 10:54] LABS: Alanine Aminotransferase 23 U/L (0-40); Albumin Level 4.2 g/dL (3.5-5.0); Anion Gap 14 (12-20); Aspartate Amino Transferase 44 U/L (5-37); Bilirubin Total 2.5 mg/dL (0.0-1.0); Blood Urea Nitrogen 12 mg/dL (9-16); Calcium 9.3 mg/dL (8.4-10.2); Carbon Dioxide 28 mmol/L (22-29); Chloride 102 mmol/L (96-108); Cholesterol 114 mg/dL (<200); Estimated Glomerular Filt Rate > 60; Glucose Fasting 109 mg/dL (60-99); HDL Cholesterol 35 mg/dL (>40); LDL Cholesterol Calculated 65 mg/dL (<100); Potassium 4.6 mmol/L (3.3-5.1); Sodium 139 mmol/L (135-145); Total Protein 7.2 g/dL (6.5-8.0); Triglycerides 70 mg/dL (<150)
[2024-12-13 10:59] LABS: Prostate Specific Antigen Scr 0.62 ng/mL (<0.05-4.0)
[2024-12-13 11:19] LABS: TSH reflex Free T4 2.54 uIU/mL (0.32-4.0); Vitamin D 25-OH Total 32.4 ng/mL (>30)
[2024-12-13 12:53] LABS: Alkaline Phosphatase 58 U/L (39-117)
== END 2024-12-13 07:13 | disposition home or self-care (01) ==
LOC: HO.HMGCLDS 07:12
PROVIDERS: PCP Nurse Practitioner Family; Visit Provider Nurse Practitioner Family
DX: Z00.00 Encounter for general adult medical examination without abnormal findings (principal); E55.9 Vitamin D deficiency, unspecified; Z12.5 Encounter for screening for malignant neoplasm of prostate; Z13.6 Encounter for screening for cardiovascular disorders
CPT/HCPCS: 36415; 80053; 80061; 81001; 82306; 84153; 84443; 85025

== ENCOUNTER 2025-01-02 10:00 | Outpatient (AMB) | payer MEDICARE, BC, SELFPAY ==
--- NOTE | 2025-01-02 10:15 | A.OFFPC_ITS ---
Vital Signs 01/02/25 10:17 Height 6 ft 2 in Weight 324 lb BMI 41.6 BP 142/66 H Blood Pressure Location Lt brachial Position Sitting Respiration 15 Pulse 72 Pulse Source Pulse Oximeter Temp 97.7 F Temp Source Oral Pulse Oximetry (%) 98 Oxygen Delivery Method Room Air Intake Visit Reasons: 6 month follow up Intake Note: Pt is here today for his 6mo. f/u Allergies morphine Allergy (Unknown, Verified 01/02/25 10:16) anaphylaxis Tobacco use date assessed: 01/02/25 Fall risk assessment: No Falls in past year Last assessed Fall Risk: 01/02/25 Dental Screening Dental Screen Date: 01/02/25 Did you have a dental visit in the last 12 months?: Yes Did you have a dental problem in the last 6 months where you did not have access to dental care?: Yes Was dental information given to patient?: Patient has dentist HPI 6 month follow up HPI Details Chief Complaint The patient presents for a follow-up for dyslipidemia and hypertension management. History of Present Illness The patient is a 69-year-old male presenting with dyslipidemia and essential hypertension. He monitors his blood pressure at home, usually reporting readings in the 130s/70s to 80s and feels his condition is under control. He denies experiencing chest pain or shortness of breath. The patient is noted to be morbidly obese but engages in regular physical activity and visits the gym consistently, reporting overall good wellbeing. He has developed ingrown toenails and plans to consult a wind turbine technician about this issue next month. Liver enzyme up, declined a hep screen/abd US. ALso, micro hem, he reports not wanting a work up for this, had this for years Social History - Exercises regularly and is consistent with gym attendance. - Is morbidly obese. Health Maintenance Review of Systems - Cardiovascular: Denies chest pain. - Respiratory: Denies shortness of breat h. -denies any fevers, chills, FARAH, blurred vision, dizziness Physical Exam General: Cooperative, healthy appearing, comfortable, no acute distress and well developed, morbidly obese Orientation: Patient oriented x3 Limitations: No limitations Head: Normal to inspection Ears: Hearing grossly normal bilaterally Nose: Normal external nose present Face and sinus: Normal facial exam Eyes: Appearance normal, both eyes and all related structures Neck: Normal visual inspection and Yes full ROM Respiratory: Normal respiratory effort and able to speak in complete sentences. Clear to auscultation bilaterally Cardiovascular: Regular rate and rhythm. Normal S1 and S2 with a systolic click GI: Normal to inspection. Soft to palpation and nontender Skin: No rashes or lesions noted Neuro: Patient oriented x3 Extremities: Normal to inspection, trace edema of the lower extremities, ingrown toenails noted but not examined Results Plan I will continue to emphasize the significance of regular physical activity and dietary modifications to manage dyslipidemia effectively. The patient's home blood pressure readings suggest stable control of essential hypertension, and I encourage ongoing monitoring. With his morbid obesity, I will advise diet and exercise efforts to manage weight. I support the patient's decision to consult a wind turbine technician for the ingrown toenails as planned. Discussion Notes During our discussion, I reviewed the management of dyslipidemia and essential hypertension, explaining the benefits of exercise and a heart-healthy diet. We discussed his recent blood pressure readings, indicating controlled hypertension. I advised maintaining current lifestyle changes for overall cardiovascular health and weight management given his obesity. For the ingrown toenails, I explained the potential risk of infection and supported his plan to visit a wind turbine technician. We discussed the importance of regular follow-up to monitor and manage his conditions adequately. Patient Instructions - Maintain regular exercise and attend t he gym as planned. - Follow a heart-healthy diet to help carlos manjarrez dyslipidemia and hypertension. - Continue monitoring blood pressure at home and report any significant changes. - Schedule and attend a wind turbine technician appoi ntment for ingrown toenails as planned. - Follow up for routine monitoring and a ssessment of health conditions as necessary. 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 Mother No problems noted. Brother No problems noted. Social History Housing: House Alcohol intake: never Patient Tobacco Use Status: Never used Tobacco e-Cigarette/Vaping Use: Never Used Second Hand Smoke Exposure: No service: No Current occupational status: retired Cognitive needs: No Hearing needs: No Vision needs: No Questionnaire Thrive Questionnaire Date Thrive assessed: 07/02/23 DANO-7 AMB Questionnaire DANO-7 Date DANO - 7 assessed: 07/05/24 Source: Developed by Drs. Paolo Holly, Patricia Alexandra, Sagar Abreu and colleagues, with an educational dwayne from [employer]. Physical exam (Primary Care) Vital Signs: Last Vital Signs Temp 97.7 F 01/02/25 10:17 Pulse 72 01/02/25 10:17 Resp 15 01/02/25 10:17 BP 142/66 H 01/02/25 10:17 Pulse Ox 98 01/02/25 10:17 Oxygen Delivery Method Room Air 01/02/25 10:17 BMI result Body Mass Index 41.6 Tobacco/Smoking Status: Tobacco use Status Tobacco use date assessed 01/02/25 01/02/25 10:18 Patient Tobacco Use Status Never used Tobacco 01/02/25 10:18 e-Cigarette/Vaping Use Never Used 01/02/25 10:18 Thrive Assessment: Date of Thrive Assessment Date Thrive assessed 07/02/23 01/02/25 10:18 Coding Level of Care Code Est Pt Level 3 (63533) Diagnoses Systolic click R01.1 HTN (hypertension) I10 Assessment & Plan Assessment & Plan (1) Systolic click: Code(s): R01.1 - Cardiac murmur, unspecified Category: Medical (2) HTN (hypertension): Code(s): I10 - Essential (primary) hypertension Category: Medical Plan .
[2025-01-02 10:17] VITALS: BP 142/66; PULSE 72; RESP 15; TEMP 36.5; O2SAT 98; BMI 41.6
== END 2025-01-02 10:55 | disposition home or self-care (01) ==
LOC: HO.HMCC 10:01
PROVIDERS: PCP Nurse Practitioner Family; Visit Provider Nurse Practitioner Family
DX: R01.1 Cardiac murmur, unspecified (principal); I10 Essential (primary) hypertension

== ENCOUNTER → 2025-01-02 10:00 | Outpatient (BNVA) | payer MEDICARE, BC, SELFPAY | PROVIDERS: PCP Nurse Practitioner Family; Visit Provider Nurse Practitioner Family | DX: R01.1 Cardiac murmur, unspecified (principal); I10 Essential (primary) hypertension | CPT/HCPCS: 99212 ==